=== PATIENT | male | born 1960 | race Caucasian/White ===

== ENCOUNTER 2019-07-03 14:12 | Day surgery (SDC) | payer BC, SELFPAY ==
[2019-07-03] MEDS: SODIUM CHLORIDE 0.9% 1,000 ML 200 ML IV (14:32)
[2019-07-03] MEDS: HYOSCYAMINE 0.125 MG TABLET PO (14:34)
[2019-07-03 14:46] VITALS: BP 105/77; PULSE 66; RESP 15; TEMP 36.4; O2SAT 96; BMI 23.6
--- NOTE | 2019-07-03 15:50 | PM.PREOP ---
Pre-operative Note Interval Note History & Physical reviewed/Exam performed by Physician: Yes Changes to H&P: No ASA Class (for procedural sedation): I
--- NOTE | 2019-07-03 15:51 | PM.PREOP ---
Pre-operative Note Interval Note History & Physical reviewed/Exam performed by Physician: Yes Changes to H&P: No ASA Class (for procedural sedation): I
--- NOTE | 2019-07-03 15:52 | PM.OP.ENDO ---
Operative Date/Time/Diagnoses Date of procedure: 07/03/19 Time of procedure: 15:52 Pre-op diagnosis: 1. Family history of colon polyps 2. Screening for colon cancer Post-op diagnosis: other (Normal colonoscopy) Procedure & Clinicians Study performed: Colonoscopy Same procedure as scheduled: Yes Indications: 1. Family history of colon cancer 2. Screening for colon cancer Surgeon: Blessing Villeda Procedure Notes SCOAP/Timeout: 16:02 Procedure in detail: ENDOSCOPIST: Blessing Villeda MD Sedation RN: Jakob Hagan RN Sedation start time: 4:04 p.m. Sedation end time: 4:37 p.m. PROCEDURE: Colonoscopy INDICATIONS: 1. Family history of colon polyps 2. Screening for colon cancer MEDICATION: Levsin 0.125 mg sublingual, incremental doses of Versed and fentanyl until appropriate level sedation achieved. ASA CLASS: 1 CECAL WITHDRAWAL TIME: 9 minutes COMPLICATIONS: None. EXTENT OF PROCEDURE: Cecum. QUALITY OF PREP: Good with portions of liquid stool. PROCEDURE: Prior to insertion of the colonoscope, a digital rectal examination was accomplished with circumferential palpation of the distal rectal mucosa without significant findings being noted. The high-definition colonoscope was passed into the rectum in the usual fashion and advanced over to the cecum without difficulty. The ileocecal valve, appendiceal stoma, and medial wall all could be inspected and no abnormalities were seen. ASCENDING COLON: As the colonoscope was withdrawn, care was taken to expose and inspect the haustral folds and no abnormalities were seen. HEPATIC FLEXURE: Normal no polyps, diverticula or other abnormalities. TRANSVERSE COLON: Normal no polyps, diverticula or other abnormalities. DESCENDING COLON: Normal no polyps, diverticula or other abnormalities. SIGMOID COLON: Normal no polyps, diverticula or other abnormalities. RECTUM: Normal. J maneuver was produced. There was no significant perianal disease. The J maneuver was broken. The remainder of the rectum was inspected and there was no external hemorrhoid disease. The scope was withdrawn. IMPRESSION: 1. Normal colonoscopy PLAN: 1. Secondary to family history, repeat colonoscopy in 5 years. The possibility of a missed lesion including a malignancy has been discussed with the patient previously. Potential alarm symptoms have been discussed and should be reported immediately. Scope withdrawal time: 9 minutes Sedation minutes: 34 Specimen(s): none sent Complications: none Impression: As above Post-procedure Recommendations: Colonscopy in 5 years Follow up: as needed Disposition: PACU
[2019-07-03] MEDS: fentaNYL 250 MCG/5 ML INJ IV (16:30)
[2019-07-03] MEDS: MIDAZOLAM 5 MG/5 ML VIAL IV (16:31)
[2019-07-03 16:41] VITALS: BP 102/73; PULSE 52; RESP 10; TEMP 36.2; O2SAT 99
[2019-07-03 16:46] VITALS: BP 90/60; PULSE 48; RESP 12; O2SAT 98
[2019-07-03 16:51] VITALS: BP 103/71; PULSE 55; RESP 12; O2SAT 98
[2019-07-03 16:56] VITALS: BP 100/69; PULSE 53; RESP 18; TEMP 36.2; O2SAT 99
== END 2019-07-03 17:28 | disposition home or self-care (01) ==
PROVIDERS: PCP Family Medicine; Visit Provider Student in an Organized Health Care Education/Training Program
PROC: 0DJD8ZZ Inspection of Lower Intestinal Tract, Via Natural or Artificial Opening Endoscopic (ICD-10-PCS; CPT 45378; principal; 2019-07-03 16:00)
DX: Z12.11 Encounter for screening for malignant neoplasm of colon (principal)
CPT/HCPCS: 45378; J2250; J3010

== ENCOUNTER → 2021-08-07 12:49 | Outpatient (CLI) | payer BC, SELFPAY ==
--- NOTE | 2021-08-07 | DI.RAD.S_ITS ---
PROCEDURE: XR HIP W PEL IF DONE LT 2V INDICATIONS: Panniculitis affecting regions, neck and back, multiple site TECHNIQUE: 2 views of the hip were acquired. COMPARISON: None. FINDINGS: Bones: No fractures or dislocations. No suspicious bony lesions. The visualized pelvic ring appears intact. Osseous hypertrophy noted in the hips bilaterally compatible with osteoarthritis. Soft tissues: No suspicious soft tissue calcifications or masses. Bilateral vasectomy clips. IMPRESSION: Mild bilateral hip osteoarthritis. Dictated by: Rafia Conner MD, PhD on 08/07/2021 at 16:38 Approved by: Rafia Conner MD, PhD on 08/07/2021 at 16:39
--- NOTE | 2021-08-07 | DI.RAD.S_ITS ---
PROCEDURE: XR LUMBAR SPINE 2-3V INDICATIONS: Panniculitis affecting regions, neck and back, multiple site TECHNIQUE: 3 views of the lumbar spine were acquired. COMPARISON: None. FINDINGS: Bones: 5 [id number] vertebrae are present. There is mild straightening of normal lumbar curvature. There is minimal to mild scattered areas of disc space narrowing throughout the lumbar spine. Moderate foraminal narrowing is noted L5-S1. No vertebral body compression fractures. No suspicious bony lesions. Soft tissues: Overlying bowel gas pattern is normal. No suspicious soft tissue calcifications. IMPRESSION: Degenerative changes most notable at L5-S1. Dictated by: Sandra Balbuena M.D. on 08/07/2021 at 21:22 Approved by: Sandra Balbuena M.D. on 08/07/2021 at 21:23
--- NOTE | 2021-08-07 | DI.RAD.S_ITS ---
PROCEDURE: XR KNEE LT 3V INDICATIONS: Panniculitis affecting regions, neck and back, multiple site TECHNIQUE: 3 views of the knee were acquired. COMPARISON: None. FINDINGS: Bones: No fractures or dislocations. No suspicious bony lesions. Mild narrowing of the medial and lateral femoral tibial joints bilaterally and bilateral periarticular osteophyte formation. Soft tissues: No suspicious soft tissue calcifications. IMPRESSION: Mild bilateral knee joint degeneration. Dictated by: Lambert Spears RRA Interpreted: Brandon Krueger MD on 08/07/2021 at 14:29 Transcribed by: CARMINA on 08/07/2021 at 14:31 Approved by: Brandon Krueger M.D. on 08/07/2021 at 16:10
== END ==
PROVIDERS: PCP Family Medicine; Referring Provider Family Medicine; Visit Provider Family Medicine
DX: M17.0 Bilateral primary osteoarthritis of knee (principal); M16.0 Bilateral primary osteoarthritis of hip; M47.817 Spondylosis without myelopathy or radiculopathy, lumbosacral region; M54.09 Panniculitis affecting regions, neck and back, multiple sites in spine; M25.552 Pain in left hip; M25.562 Pain in left knee
CPT/HCPCS: 72100; 73502; 73562

== ENCOUNTER → 2024-07-24 08:19 | Outpatient (CLI) | payer OTHER, SELFPAY ==
--- NOTE | 2024-07-24 08:25 | DI.RAD.S_ITS ---
PROCEDURE: XR FOOT LT 2V INDICATIONS: FOOT PAIN TECHNIQUE: 3 views of the foot were acquired. COMPARISON: None. FINDINGS: Bones: No fractures or dislocations. No suspicious bony lesions. Well healed calcaneal fracture supported by cortical sideplate and screws. No evidence of hardware failure loosening. Soft tissues: No tibiotalar joint effusion. Achilles tendon appears normal. IMPRESSION: Healed instrumented calcaneal fracture. Approved by: Ronnie Haas M.D. on 07/24/2024 at 15:34
== END ==
LOC: RAD 08:23
PROVIDERS: PCP Family Medicine; Referring Provider Family Medicine; Visit Provider Family Medicine
DX: M79.672 Pain in left foot (principal); Z87.81 Personal history of (healed) traumatic fracture
CPT/HCPCS: 73620

== ENCOUNTER → 2024-11-27 09:41 | Outpatient (CLI) | payer OTHER, SELFPAY ==
--- NOTE | 2024-11-27 09:44 | DI.RAD.S_ITS ---
PROCEDURE: XR LUMBAR SPINE MIN 4V INDICATIONS: BACK PAIN TECHNIQUE: 5 views of the lumbar spine were acquired, including bilateral oblique views. COMPARISON: [facility], , XR LUMBAR SPINE 2-3V, 08/07/2021, 14:07. FINDINGS: Bones: 5 nonrib-bearing vertebrae are present. There is normal bony alignment. No vertebral body compression fractures. No suspicious bony lesions. Moderate foraminal is present. Multilevel scattered minimal mild disc space narrowing. Soft tissues: Overlying bowel gas pattern is normal. No suspicious soft tissue calcifications. Oblique images: No pars defects. IMPRESSION: Degenerative changes most severe at L4-5 and L5-S1 Dictated by: Sandra Balbuena M.D. on 11/27/2024 at 12:22 Approved by: Sandra Balbuena M.D. on 11/27/2024 at 12:26
== END ==
LOC: RAD 09:42
PROVIDERS: PCP Family Medicine; Referring Provider Family Medicine; Visit Provider Family Medicine
DX: M54.41 Lumbago with sciatica, right side (principal); G89.29 Other chronic pain; M47.816 Spondylosis without myelopathy or radiculopathy, lumbar region; M47.817 Spondylosis without myelopathy or radiculopathy, lumbosacral region
CPT/HCPCS: 72110

== ENCOUNTER → 2025-08-14 10:49 | Outpatient (CLI) | payer OTHER, SELFPAY ==
--- NOTE | 2025-08-14 10:53 | DI.RAD.S_ITS ---
PROCEDURE: XR HAND LT MIN 3V INDICATIONS: LT HAND PAIN TECHNIQUE: 3 views of the hand(s) acquired. COMPARISON: None. FINDINGS: Bones: No fractures or dislocations. 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 Carpal bones are normally aligned. No suspicious bony lesions. Soft tissues: No suspicious soft tissue calcifications. IMPRESSION: No acute left hand fracture or dislocation. 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 Dictated by: Brandon Krueger M.D. on 08/14/2025 at 17:52 Approved by: Brandon Krueger M.D. on 08/14/2025 at 17:52
== END ==
PROVIDERS: PCP Family Medicine; Referring Provider Family Medicine
DX: M19.042 Primary osteoarthritis, left hand (principal); M79.642 Pain in left hand
CPT/HCPCS: 73130